=== PATIENT | female | born 1970 | race Caucasian/White ===

== ENCOUNTER 2016-06-06 19:56 | Emergency (ER) | payer MEDICAID ==
[2016-06-06] MEDS ORDERED: DEXTROSE 50 % IVP 50 ML DISP.SYRIN IVP ONE (19:59)
--- NOTE | 2016-06-06 20:00 | Emergency Department Record ---
History of Present Illness - General Stated Complaint: UNRESPONSIVE Time Seen by Provider: 06/06/16 19:58 Source: Family (Patient's brother) Mode of Arrival: Carried Limitations: Altered mental status - History of Present Illness Initial comments: 45 yo female presents to ED unresponsive. Patient's brother reports that he was driving her to her SO's home when she suddenly became unresponsive, not answering questions. Patient does have a history of IDDM, brother reports that she has been diabetic for some time, just refilled her prescription today. Onset/Timin -: Minutes(s) Consistency: Constant Improves with: None Worsens with: None - [place] Coma Scale Eye Response: (1) No response Motor Response: (1) No motor response Verbal Response: (1) No verbal response [place] Total: 3 - Related Data Home Medications Medication Instructions Recorded Confirmed Last Taken Aspirin 325 mg PO Q4-6HR tab 08/10/15 08/17/15 Unknown Allergies Allergy/AdvReac Type Severity Reaction Status Date / Time No Known Drug Allergies Allergy Unverified 08/10/15 15:07 Review of Systems ROS unobtainable: Due to mental status Past Medical History - SOCIAL HISTORY Smoking Status: Light tobacco smoker (<10/day) - RESPIRATORY Hx Respiratory Disorders: No Hx Tuberculosis: No - CARDIOVASCULAR Hx Cardio Disorders: No - NEURO Hx Neuro Disorders: No - GI Hx GI Disorders: No - Hx Genitourinary Disorders: No - ENDOCRINE Hx Endocrine Disorders: Yes Hx Diabetes: Yes (started with gestation 24 yrs ago) - MUSCULOSKELETAL Hx Musculoskeletal Disorders: No - PSYCH Hx Psych Problems: No - HEMATOLOGY/ONCOLOGY Hx Hematology/Oncology Disorders: No Physical Exam - General General Appearance: Other (Patient is diaphoretic, unreponsive on examination) Limitations: Altered mental status - Head Head exam: Atraumatic, Normocephalic, Normal inspection Head exam detail: negative: Abrasion, Contusion, Cid's sign, General tenderness, Hematoma, Laceration - Eye Eye exam: Normal appearance. negative: Conjunctival injection, Periorbital swelling, Periorbital tenderness, Scleral icterus - ENT Ear exam: negative: Auricular hematoma, Auricular trauma Nasal Exam: negative: Active bleeding, Discharge, Dried blood, Foreign body Mouth exam: negative: Drooling, Laceration, Muffled voice, Tongue elevation - Neck Neck exam: Normal inspection. negative: Meningismus, Tenderness - Respiratory Respiratory exam: Normal lung sounds bilaterally. negative: Rales, Respiratory distress, Rhonchi, Stridor - Cardiovascular Cardiovascular Exam: Regular rate, Normal rhythm, Normal heart sounds - GI/Abdominal GI/Abdominal exam: Soft. negative: Rebound, Rigid, Tenderness - Rectal Rectal exam: Deferred - exam: Deferred - Extremities Extremities exam: Normal inspection. negative: Pedal edema, Tenderness - Back Back exam: Denies: CVA tenderness (R), CVA tenderness (L) - Neurological Neurological exam: Altered - Psychiatric Psychiatric exam: Normal affect, Normal mood - Skin Skin exam: Normal color. negative: Abrasion Type of lesion: negative: abrasion Course - Reevaluation(s) Reevaluation #1: 06/06/16 19:59 Accu check performed, 25. D50 ordered to infuse. Reevaluation #2: 06/06/16 20:08 D50 given, patient is more alert and answering questions. Reevaluation #3: 06/06/16 20:36 Labs reviewed, Glucose down to 22 (repeat accu check 102), mild elevation AST/ ALT. Labs are otherwise grossly unremarkable for an acute process. Reevaluation #4: 06/06/16 22:32 After eating, patient's accu check is now 105. Patient appears stable for discharge at this time with her brother who will be with her tonight. Medical Decision Making - Lab Data Result diagrams: 06/06/16 20:00 06/06/16 20:00 Disposition Disposition: Discharge Clinical Impression: Hypoglycemia Disposition: Home, Self-Care Condition: (2) Stable Instructions: Diabetic Hypoglycemia (ED) Additional Instructions: Return to ED if your symptoms worsen or if you have any concerns. Follow-up with your family doctor in 3-5 days as directed. Time of Disposition: 22:34
[2016-06-06 20:10] LABS: HEMATOCRIT 37.4 % (35.0-47.0); HEMOGLOBIN 12.1 gm/dl (11.6-16.0); MEAN CELL VOLUME 93.7 fl (81-97); MEAN CORPUSCULAR HEMOGLOBIN 30.3 pg (27-33); MEAN CORPUSCULAR HGB CONC 32.4 g/dl (32-36); MEAN PLATELET VOLUME 10.3 fl (7.4-10.4); PLATELET COUNT 466 K/uL (130-400); RED BLOOD COUNT 3.99 M/uL (3.80-5.40); RED CELL DISTRIBUTION WIDTH 14.2 % (11.5-14.5); WHITE BLOOD COUNT W/O DIFF 11.1 K/uL (4.2-12.2)
[2016-06-06 20:21] LABS: ALB/GLOB RATIO 1.1 (1.1-1.8); ALBUMIN 4.7 gm/dL (3.5-5.0); ALKALINE PHOSPHATASE 128 U/L (38-126); ALT/SGPT 147 U/L (9-52); ANION GAP 13.1 (7-16); AST/SGOT 127 U/L (14-36); BLOOD UREA NITROGEN 11 mg/dL (7-17); CARBON DIOXIDE 24.9 mmol/L (22-30); CREATININE 0.7 mg/dL (0.52-1.04); EST GLOMERULAR FILTRATION RATE > 60 ml/min; TOTAL PROTEIN 8.8 gm/dL (6.3-8.2)
[2016-06-06 20:31] LABS: GLUCOSE,RANDOM 22 mg/dL (70-110)
[2016-06-06] MEDS ORDERED: POTASSIUM CHLORIDE 20 MEQ TABLET PO ONE (20:36)
== END 2016-06-06 22:45 | disposition home or self-care (01) ==
LOC: ER 19:56
DX: E11.649 Type 2 diabetes mellitus with hypoglycemia without coma (principal)
CPT/HCPCS: 99284 ×2; 96374; 80053; 36416; 82948; 85027; G0480; 80320

== ENCOUNTER 2016-06-18 00:45 | Emergency (ER) | payer MEDICAID ==
[2016-06-18] MEDS ORDERED: ONDANSETRON HCL IV 4 MG/2 ML VIAL IVP ONE (00:59)
[2016-06-18 01:30] LABS: URINE APPEARANCE CLEAR; URINE BILIRUBIN NEGATIVE (NEGATIVE); URINE BLOOD TRACE-I (NEGATIVE); URINE COLOR YELLOW; URINE KETONE NEGATIVE (NEGATIVE); URINE LEUKOCYTE ESTERASE NEGATIVE (NEGATIVE); URINE NITRITE NEGATIVE (NEGATIVE); URINE PROTEIN NEGATIVE (NEGATIVE); URINE UROBILINOGEN 0.2 E.U./dL (0.20 - 1.00)
[2016-06-18 01:43] LABS: BASO % 0.5 % (0-6); GRAN % 69.3 % (47-80); HEMATOCRIT 39.8 % (35.0-47.0); HEMOGLOBIN 12.6 gm/dl (11.6-16.0); LYMPH % 23.3 % (16-45); MEAN CORPUSCULAR HEMOGLOBIN 30.1 pg (27-33); MEAN CORPUSCULAR HGB CONC 31.7 g/dl (32-36); MEAN PLATELET VOLUME 10.6 fl (7.4-10.4); MONO % 5.9 % (0-9); PLATELET COUNT 363 K/uL (130-400); RED BLOOD COUNT 4.19 M/uL (3.80-5.40); RED CELL DISTRIBUTION WIDTH 13.6 % (11.5-14.5); WHITE BLOOD COUNT W/O DIFF 10.2 K/uL (4.2-12.2)
[2016-06-18 01:48] LABS: URINE EPITHELIAL CELLS 0 - 2 (FEW); URINE RBC 0 - 2 (NONE SEEN); URINE WBC 0 - 2 (0-2/hpf)
[2016-06-18 01:53] LABS: ANION GAP 10.1 (7-16); BLOOD UREA NITROGEN 9 mg/dL (7-17); CARBON DIOXIDE 32.9 mmol/L (22-30); CREATININE 0.5 mg/dL (0.52-1.04); EST GLOMERULAR FILTRATION RATE > 60 ml/min
--- NOTE | 2016-06-18 02:02 | Emergency Department Record ---
History of Present Illness - General Chief complaint: Hypogylcemia Stated complaint: unresponseive/low blood sugar Time Seen by Provider: 06/18/16 01:03 Source: Patient, EMS Mode of Arrival: EMS Limitations: No limitations - History of Present Illness Initial comments: pt states she was eating a lot of candy and overcompensated w her insulin and became unresponsive. paramedics found her bs to be 30 and gave her d50. she aroused and started vomiting Onset/Timin -: Hour(s) Associated Symptoms: Nausea/vomiting - [place] Coma Scale Eye Response: (4) Open spontaneously Motor Response: (6) Obeys commands Verbal Response: (5) Oriented [place] Total: 15 - Related Data Home Medications Medication Instructions Recorded Confirmed Last Taken Aspirin 325 mg PO Q4-6HR tab 08/10/15 08/17/15 Unknown Allergies Allergy/AdvReac Type Severity Reaction Status Date / Time No Known Drug Allergies Allergy Unverified 08/10/15 15:07 Travel Screening - Travel/Exposure Within Last 30 Days Have you traveled within the last 30 days?: No - Travel/Exposure Within Last Year Have you traveled outside the [place] in the last year?: No - Additonal Travel Details Have you been exposed to anyone with a communicable illness?: No - Travel Symptoms Symptom Screening: None Review of Systems Reviewed: No additional complaints except as noted below Constitutional: Reports: As per HPI. Denies: Chills, Fever, Malaise, Night sweats, Weakness, Weight change Eyes: Reports: As per HPI. Denies: Eye discharge, Eye pain, Photophobia, Vision change ENT: Reports: As per HPI. Denies: Congestion, Dental pain, Ear pain, Epistaxis , Hearing loss, Throat pain Respiratory: Reports: As per HPI. Denies: Cough, Dyspnea, Hemoptysis, Stridor, Wheezes Cardiovascular: Reports: As per HPI. Denies: Arrhythmia, Chest pain, Dyspnea on exertion, Edema, Murmurs, Orthopnea, Palpitations, Paroxysmal nocturnal dyspnea, Rheumatic Fever, Syncope Endocrine: Reports: As per HPI. Denies: Fatigue, Heat or cold intolerance, Polydipsia, Polyuria Gastrointestinal: Reports: As per HPI. Denies: Abdominal pain, Constipation, Diarrhea, Hematemesis, Hematochezia, Melena, Nausea, Vomiting Genitourinary: Reports: As per HPI. Denies: Abnormal menses, Discharge, Dyspareunia, Dysuria, Frequency, Hematuria, Incontinence, Retention, Urgency Musculoskeletal: Reports: As per HPI. Denies: Arthralgia, Back pain, Gout, Joint swelling, Myalgia, Neck pain Skin: Reports: As per HPI. Denies: Bruising, Change in color, Change in hair/ nails, Lesions, Pruritus, Rash Neurological: Reports: As per HPI. Denies: Abnormal gait, Confusion, Headache, Numbness, Paresthesias, Seizure, Tingling, Tremors, Vertigo, Weakness Psychiatric: Reports: As per HPI. Denies: Anxiety, Auditory hallucinations, Depression, Homicidal thoughts, Suicidal thoughts, Visual hallucinations Hematological/Lymphatic: Reports: As per HPI. Denies: Anemia, Blood Clots, Easy bleeding, Easy bruising, Swollen glands Past Medical History - SOCIAL HISTORY Smoking Status: Current every day smoker Alcohol Use: None Alcohol Use Comment: admits 2 hard lemonades today Drug Use: None - RESPIRATORY Hx Respiratory Disorders: No Hx Tuberculosis: No - CARDIOVASCULAR Hx Cardio Disorders: No - NEURO Hx Neuro Disorders: No - GI Hx GI Disorders: No - Hx Genitourinary Disorders: No - ENDOCRINE Hx Endocrine Disorders: Yes Hx Diabetes: Yes (started with gestation 24 yrs ago) - MUSCULOSKELETAL Hx Musculoskeletal Disorders: No - PSYCH Hx Psych Problems: No - HEMATOLOGY/ONCOLOGY Hx Hematology/Oncology Disorders: No Family Medical History Any Significant Family History?: No Physical Exam - General General Appearance: Alert, Oriented x3, Cooperative, Mild distress - Head Head exam: Normal inspection - Eye Eye exam: Normal appearance, PERRL, EOMI Pupils: Normal accommodation - ENT ENT exam: Normal exam, Mucous membranes moist, Normal external ear exam, Normal orophraynx Ear exam: Normal external inspection. negative: External canal tenderness Nasal Exam: Normal inspection. negative: Discharge, Sinus tenderness Mouth exam: Normal external inspection, Tongue normal Teeth exam: Normal inspection. negative: Dental caries Throat exam: Normal inspection. negative: Tonsillar erythema, Tonsillar exudate - Neck Neck exam: Normal inspection, Full ROM. negative: Tenderness - Respiratory Respiratory exam: Normal lung sounds bilaterally. negative: Respiratory distress - Cardiovascular Cardiovascular Exam: Regular rate, Normal rhythm, Normal heart sounds - GI/Abdominal GI/Abdominal exam: Soft, Normal bowel sounds. negative: Tenderness - Rectal Rectal exam: Deferred - exam: Deferred - Extremities Extremities exam: Normal inspection, Full ROM, Normal capillary refill. negative: Tenderness - Back Back exam: Reports: Normal inspection, Full ROM. Denies: Muscle spasm, Rash noted, Tenderness - Neurological Neurological exam: Alert, CN II-XII intact, Normal gait, Oriented X3 - Psychiatric Psychiatric exam: Normal affect, Normal mood - Skin Skin exam: Dry, Intact, Normal color, Warm Course Vital Signs 06/18/16 00:50 Pulse Rate 71 Respiratory 20 Rate Blood Pressure 146/101 Pulse Ox 100 Medical Decision Making - Lab Data Result diagrams: 06/18/16 01:34 06/18/16 01:34 Lab Results 06/18/16 06/18/16 06/18/16 Range/Units 01:00 01:15 01:34 WBC 10.2 (4.2-12.2) K/uL RBC 4.19 (3.80-5.40) M/uL Hgb 12.6 (11.6-16.0) gm/dl Hct 39.8 (35.0-47.0) % MCV 95.0 (81-97) fl MCH 30.1 (27-33) pg MCHC 31.7 L (32-36) g/dl RDW 13.6 (11.5-14.5) % Plt Count 363 (130-400) K/uL MPV 10.6 H (7.4-10.4) fl Gran % 69.3 (47-80) % Lymphocytes % 23.3 (16-45) % Monocytes % 5.9 (0-9) % Eosinophils % 1.0 (0-6) % Basophils % 0.5 (0-6) % POC Glucose 93 (70-110) mg/dL Urine Color Yellow Urine Appearance Clear Urine pH 7.0 (5.0-8.0) Ur Specific [place] 1.010 (1.002-1.030) Urine Protein Negative (NEGATIVE) Urine Glucose (UA) 100 mg/dl H (NEGATIVE) Urine Ketones Negative (NEGATIVE) Urine Blood Trace-i (NEGATIVE) Urine Nitrite Negative (NEGATIVE) Urine Bilirubin Negative (NEGATIVE) Urine Urobilinogen 0.2 (0.20 - 1.00) E.U./dL Ur Leukocyte Esterase Negative (NEGATIVE) Urine RBC 0 - 2 (NONE SEEN) Urine WBC 0 - 2 (0-2/hpf) Ur Epithelial Cells 0 - 2 (FEW) Disposition Disposition: Discharge Clinical Impression: Hypoglycemia Disposition: Home, Self-Care Condition: (1) Good Instructions: Diabetic Hypoglycemia (ED) Additional Instructions: follow up with family doctor. return sooner if worse. monitor glucose closely Forms: Patient Portal Access
[2016-06-18 02:15] LABS: GLUCOSE,RANDOM 50 mg/dL (70-110)
[2016-06-18 06:24] LABS: AMPHETAMINE SCREEN URINE NOT DETECTED; BARBITURATE SCREEN URINE NOT DETECTED; BENZODIAZEPINE SCREEN URINE NOT DETECTED; COCAINE SCREEN URINE NOT DETECTED; METHADONE SCREEN URINE NOT DETECTED; METHAMPHETAMINE SCREEN NOT DETECTED; OPIATE SCREEN URINE DETECTED; OXYCODONE SCREEN URINE NOT DETECTED; PHENCYCLIDINE SCREEN URINE NOT DETECTED; PROPOXYPHENE SCREEN URINE NOT DETECTED; THC SCREEN URINE DETECTED; TRICYCLIC ANTIDEPRESSANT SCRN NOT DETECTED
== END 2016-06-18 06:58 | disposition home or self-care (01) ==
LOC: ER 00:45
DX: E10.641 Type 1 diabetes mellitus with hypoglycemia with coma (principal); R11.2 Nausea with vomiting, unspecified; Z79.4 Long term (current) use of insulin; F12.10 Cannabis abuse, uncomplicated; F11.10 Opioid abuse, uncomplicated
CPT/HCPCS: 36416; 80048; 80305; 81001; 82948; 85025; 96374; 99284; J2405

== ENCOUNTER 2017-10-11 13:12 | Emergency (ER) | payer MEDICAID ==
[2017-10-11] MEDS ORDERED: 0.9 % SODIUM CHLORIDE 1000ML 1,000 ML IV PRN (13:21)
[2017-10-11] MEDS ORDERED: DEXTROSE 50 % IVP 50 ML DISP.SYRIN IVP ONE (13:34)
[2017-10-11 13:56] LABS: BASO % 0.7 % (0-6); EOS % 2.1 % (0-6); GRAN % 56.4 % (47-80); HEMATOCRIT 42.1 % (35.0-47.0); HEMOGLOBIN 14.1 gm/dl (11.6-16.0); LYMPH % 31.4 % (16-45); MEAN CELL VOLUME 94.6 fl (81-97); MEAN CORPUSCULAR HEMOGLOBIN 31.7 pg (27-33); MEAN CORPUSCULAR HGB CONC 33.5 g/dl (32-36); MEAN PLATELET VOLUME 11.9 fl (7.4-10.4); MONO % 9.4 % (0-9); PLATELET COUNT 418 K/uL (130-400); RED BLOOD COUNT 4.45 M/uL (3.80-5.40); RED CELL DISTRIBUTION WIDTH 13.4 % (11.5-14.5); WHITE BLOOD COUNT W/O DIFF 10.7 K/uL (4.2-12.2)
--- NOTE | 2017-10-11 14:00 | Emergency Department Record ---
History of Present Illness - General Chief Complaint: Altered Mental Status Stated Complaint: ALTERED STATE Time Seen by Provider: 10/11/17 13:21 Source: Patient Mode of Arrival: Wheelchair - History of Present Illness Initial Comments: patient brought to the ED by a co worker and she is confused and disoriented. History of DM and she took insulin 70/30 this am and her initial glucose 48 and after one amp of D50 she was acting alert and oriented times three. Onset/Timin -: Hour(s) Associated Symptoms: Denies other symptoms - [place] Coma Scale Eye Response: (3) Open to voice Motor Response: (4) Withdraws to pain Verbal Response: (2) Incomprehsible sounds [place] Total: 9 - Related Data Allergies Allergy/AdvReac Type Severity Reaction Status Date / Time No Known Drug Allergies Allergy Verified 10/11/17 13:40 Travel Screening - Travel/Exposure Within Last 30 Days Have you traveled within the last 30 days?: No Review of Systems ROS unobtainable: Due to mental status Past Medical History - SOCIAL HISTORY Smoking Status: Current every day smoker - RESPIRATORY Hx Respiratory Disorders: No Hx Tuberculosis: No - CARDIOVASCULAR Hx Cardio Disorders: No - NEURO Hx Neuro Disorders: No - GI Hx GI Disorders: No - Hx Genitourinary Disorders: No - ENDOCRINE Hx Endocrine Disorders: Yes Hx Diabetes: Yes (started with gestation 24 yrs ago) - MUSCULOSKELETAL Hx Musculoskeletal Disorders: No - PSYCH Hx Psych Problems: No - HEMATOLOGY/ONCOLOGY Hx Hematology/Oncology Disorders: No Family Medical History Any Significant Family History?: No Physical Exam - General General Appearance: Severe distress - Head Head exam: Normal inspection - Eye Eye exam: Normal appearance, PERRL Pupils: Normal accommodation - ENT ENT exam: Normal exam, Mucous membranes moist, Normal external ear exam, Normal orophraynx, TM's normal bilaterally Ear exam: Normal external inspection. negative: External canal tenderness Nasal Exam: Normal inspection. negative: Discharge, Sinus tenderness Mouth exam: Normal external inspection, Tongue normal Teeth exam: Normal inspection. negative: Dental caries Throat exam: Normal inspection. negative: Tonsillar erythema, Tonsillar exudate - Respiratory Respiratory exam: Normal lung sounds bilaterally. negative: Respiratory distress - Cardiovascular Cardiovascular Exam: Regular rate, Normal rhythm, Normal heart sounds - GI/Abdominal GI/Abdominal exam: Soft, Normal bowel sounds. negative: Tenderness - Rectal Rectal exam: Deferred - exam: Deferred - Extremities Extremities exam: Normal inspection, Full ROM, Normal capillary refill, Other ( track currie on her arms). negative: Tenderness - Back Back exam: Reports: Normal inspection, Full ROM. Denies: Muscle spasm, Rash noted, Tenderness - Neurological Neurological exam: Altered, Other (lethargic aggitated, ) - Psychiatric Psychiatric exam: Agitated - Skin Skin exam: Dry, Intact, Normal color, Warm Course Vital Signs 10/11/17 13:36 Temperature 97.8 F Pulse Rate 82 Respiratory 20 Rate Blood Pressure 147/91 Pulse Ox 100 - Reevaluation(s) Reevaluation #1: patient recieved an amp of D50 and she wake up from her diabetic coma and talking appropriately and she said she took her morning insulin and did eat that much today and she denied using any drugs and she has been drug free for 6 months. She was given a meal and she ate her meal and than she requested to go to the bathroom and she walked to the bathroom and than left AMA without telling anyone. Patient did tell Ting she had things to do and wanted to leave prior to leaving. 10/12/17 07:33 Medical Decision Making - Lab Data Result diagrams: 10/11/17 13:35 10/11/17 13:35 Critical Care Time Critical Care Time: Yes Total Critical Care Time: 26 Critical Care Time: critical care for 26 minutes until she was out of her coma state from hypoglycemia Disposition Clinical Impression: Hypoglycemia Diabetes Qualifiers: Diabetes mellitus type: type 1 Diabetes mellitus complication status: with hypoglycemia Diabetes mellitus complication detail: with coma Qualified Code(s) : E10.641 - Type 1 diabetes mellitus with hypoglycemia with coma Disposition: Against Medical Advice Condition: (1) Good Instructions: Hypoglycemia in a Person with Diabetes (ED) Additional Instructions: follow up with family DrAldo Forms: Patient Portal Access Quality - Quality Measures Quality Measures: N/A - Blood Pressure Screening Does Patient Have Any of the Following: No Blood Pressure Classification: Hypertensive Reading Systolic Measurement: 147 Diastolic Measurement: 91 Screening for High Blood Pressure: < First Hypertensive BP, F/U Documented > [ [id number]] First Hypertensive Follow-up Interventions: Referral to alternative/primary care provider.
[2017-10-11 14:10] LABS: PARTIAL THROMBOPLASTIN TIME 27.8 SECONDS (24.5-39.1); PROTHROMBIN TIME (PATIENT) 10.9 SECONDS (9.5-12.1)
[2017-10-11 14:12] LABS: BLOOD UREA NITROGEN 12 mg/dL (6-20); CREATININE 0.6 mg/dL (0.5-0.9); EST GLOMERULAR FILTRATION RATE > 60 mL/min; TOTAL PROTEIN 8.4 g/dL (6.6-8.7)
[2017-10-11 14:17] LABS: ALB/GLOB RATIO 1.3 (1.1-1.8); ALBUMIN 4.7 g/dL (4.0-5.0); ALT/SGPT 171 U/L (<33); AST/SGOT 133 U/L (10.0-35.0)
[2017-10-11 14:29] LABS: ACETAMINOPHEN < 5.0 ug/mL (10.0-30.0)
[2017-10-11 14:30] LABS: GLUCOSE,RANDOM 23 mg/dL (74-109)
[2017-10-11 14:48] LABS: ALKALINE PHOSPHATASE 82 U/L (35-104)
[2017-10-11 14:49] LABS: SALICYLATE < 0.3 mg/dL (2.8-20)
== END 2017-10-11 14:40 | disposition left against medical advice (07) ==
LOC: ER 13:12
DX: E10.641 Type 1 diabetes mellitus with hypoglycemia with coma (principal); R41.82 Altered mental status, unspecified; F17.210 Nicotine dependence, cigarettes, uncomplicated; Z79.4 Long term (current) use of insulin
CPT/HCPCS: 36416; 80053; 80320; 80329; 82948; 85025; 85610; 85730; 96361; 96374; 99284